=== PATIENT | male | born 2000 | race Two or more races ===

== ENCOUNTER 2021-10-20 21:01 | Inpatient (IN) | payer MEDICAID, OTHER ==
[~2021-10-20] VITALS: Ht 188 cm; Wt 133.7 kg
[2021-10-20 22:32] LABS: BASOPHILS % (AUTO) 0.9 % (0.0-2.0); EOSINOPHILS % (AUTO) 1.6 % (1.0-6.0); HEMATOCRIT 47.4 % (41-53); HEMOGLOBIN 15.8 g/dL (13.5-17.5); LYMPHOCYTES # (AUTO) 3.5 K/uL (1.0-4.8); LYMPHOCYTES % (AUTO) 32.9 % (22.0-44.0); MEAN CORPUSCULAR HEMOGLOBIN 28.1 pg (26.0-34.0); MEAN CORPUSCULAR HGB CONC 33.4 G/dL (31.0-37.0); MEAN CORPUSCULAR VOLUME 84 fL (80-100); MONOCYTES # (AUTO) 0.9 K/uL (0.1-1.0); MONOCYTES % (AUTO) 8.8 % (2.0-9.0); NEUTROPHILS % (AUTO) 55.8 % (40.0-70.0); PLATELET COUNT (AUTO) 219 K/uL (150-450); RED BLOOD CELL COUNT(AUTO) 5.64 MIL/uL (4.50-5.90); RED CELL DISTRIBUTION WIDTH 12.8 % (11.5-14.5)
[2021-10-20 22:42] LABS: ANION GAP 10 mmol/L (8-16); CALCIUM, TOTAL 9.3 mg/dL (8.8-10.5); CARBON DIOXIDE 28 mmol/L (22-29); CHLORIDE 100 mmol/L (98-107); CREATININE 0.93 mg/dL (0.60-1.30); GLUCOSE,RANDOM 144 mg/dL (70-110); POTASSIUM 3.9 mmol/L (3.5-5.1); SODIUM SERUM 138 mmol/L (136-145); UREA NITROGEN, BLOOD 18 mg/dL (7-18)
[2021-10-20 22:47] LABS: GLOMERULAR FILTR. RATE CALC > 60 mL/min (>60)
[2021-10-20 22:48] LABS: ALANINE AMINOTRANSFERASE 37 U/L (12-78); ALBUMIN 4.1 g/dL (3.4-5.0); ALKALINE PHOSPHATASE 86 U/L (46-116); ASPARTATE AMINOTRANSFERASE 26 U/L (15-37); BILIRUBIN,TOTAL 1.5 mg/dL (0.1-1.0); TOTAL PROTEIN, SERUM 7.9 g/dL (6.4-8.2)
[2021-10-20 23:15] LABS: COVID AG,FIA SOURCE NASOPHARYNGEAL
[2021-10-20 23:24] LABS: AMPHET/METH SCREEN,URINE POSITIVE (NEGATIVE); BARBITURATE SCREEN, URINE NEGATIVE (NEGATIVE); BENZODIAZEPINES SCREEN,URINE NEGATIVE (NEGATIVE); CANNABINOID SCREEN,URINE POSITIVE (NEGATIVE); COCAINE SCREEN,URINE NEGATIVE (NEGATIVE); METHADONE SCREEN, URINE NEGATIVE (NEGATIVE); OPIATE SCREEN,URINE NEGATIVE (NEGATIVE); PHENCYCLIDINE SCREEN,URINE NEGATIVE (NEGATIVE)
[2021-10-21] MEDS ORDERED: DiphenhydrAMINE HCL 50 MG/ML VIAL IM ONE (00:45)
[2021-10-21] MEDS ORDERED: HALOPERIDOL LACTATE 5 MG/ML VIAL IM ONE (00:45)
[2021-10-21] MEDS ORDERED: LORazepam 2 MG/ML VIAL IM ONE (00:45)
[2021-10-21 12:05] VITALS: BP 130/84
[2021-10-22] MEDS ORDERED: PETROLATUM,WHITE 28 GM JELLY TP PRN (06:30)
[2021-10-22] MEDS ORDERED: ALBUTEROL SULFATE HFA 90 MCG/PUFF 8 GM INHALER IH PRN (06:30)
[2021-10-22] MEDS ORDERED: NICOTINE 14 MG/24 HOUR PATCH TD PRN (06:30)
[2021-10-22] MEDS ORDERED: MAGNESIUM HYDROXIDE SUSPENSION 30 ML UDCUP PO PRN (06:30)
[2021-10-22] MEDS ORDERED: GuaiFENesin/D-METHORPHAN [SUGAR-FREE] 200-20MG/10 ML SYRUP UDCUP PO PRN (06:30)
[2021-10-22] MEDS ORDERED: DOCUSATE SODIUM 100 MG CAPSULE PO PRN (06:30)
[2021-10-22] MEDS ORDERED: CloNIDine HCL 0.1 MG TABLET PO PRN (06:30)
[2021-10-22] MEDS ORDERED: LOPERAMIDE HCL 2 MG CAPSULE PO PRN (06:30)
[2021-10-22] MEDS ORDERED: IBUPROFEN 400 MG TABLET PO PRN (06:30)
[2021-10-22] MEDS ORDERED: ONDANSETRON HCL 4 MG TABLET PO PRN (06:30)
[2021-10-22] MEDS ORDERED: ACETAMINOPHEN 325 MG TABLET PO PRN (06:30)
[2021-10-22 06:51] LABS: GLUCOMETER DEV NAME(LOC) 3E.C; GLUCOSE,POINT OF CARE 130 MG/DL (70-110)
[2021-10-22] MEDS: LORazepam 2 MG TABLET PO PRN (12:38)
[2021-10-22] MEDS: HALOPERIDOL 5 MG TABLET PO PRN (12:38)
[2021-10-22] MEDS: OLANZapine 5 MG TABLET PO SCH (17:20)
[2021-10-23 06:47] LABS: GLUCOMETER DEV NAME(LOC) 3E.C; GLUCOSE,POINT OF CARE 106 MG/DL (70-110)
[2021-10-23] MEDS: HALOPERIDOL 5 MG TABLET PO PRN (08:25)
[2021-10-23] MEDS: LORazepam 2 MG TABLET PO PRN (08:25)
[2021-10-23] MEDS: OLANZapine 5 MG TABLET PO SCH ×2 (08:25→18:01)
[2021-10-23 16:28] VITALS: BP 132/86
[2021-10-24 06:41] LABS: GLUCOMETER DEV NAME(LOC) 3E.C; GLUCOSE,POINT OF CARE 98 MG/DL (70-110)
[2021-10-24] MEDS: OLANZapine 5 MG TABLET PO SCH ×2 (08:08→17:00)
[2021-10-24 08:39] VITALS: BP 151/91
[2021-10-24] MEDS ORDERED: DiphenhydrAMINE HCL 50 MG/ML VIAL ONE (13:14)
[2021-10-24] MEDS ORDERED: LORazepam 2 MG/ML VIAL ONE (13:14)
[2021-10-24] MEDS ORDERED: HALOPERIDOL LACTATE 5 MG/ML VIAL ONE (13:14)
[2021-10-24] MEDS ORDERED: DiphenhydrAMINE HCL 50 MG/ML VIAL IM ONE (13:15)
[2021-10-24] MEDS ORDERED: HALOPERIDOL LACTATE 5 MG/ML VIAL IM ONE (13:15)
[2021-10-24] MEDS ORDERED: LORazepam 2 MG/ML VIAL IM ONE (13:15)
[2021-10-25 07:01] LABS: GLUCOMETER DEV NAME(LOC) 3E.C; GLUCOSE,POINT OF CARE 96 MG/DL (70-110)
[2021-10-25 08:27] VITALS: BP 153/99
[2021-10-25] MEDS: OLANZapine 5 MG TABLET PO SCH ×2 (09:42→15:56)
[2021-10-25] MEDS: LORazepam 2 MG TABLET PO PRN ×2 (09:45→15:56)
[2021-10-25] MEDS: HALOPERIDOL 5 MG TABLET PO PRN (09:45)
[2021-10-25 16:16] VITALS: BP 164/95
[2021-10-26 06:56] LABS: GLUCOMETER DEV NAME(LOC) 3E.C; GLUCOSE,POINT OF CARE 100 MG/DL (70-110)
[2021-10-26 08:01] LABS: COVID AG,FIA SOURCE NASAL SWAB
[2021-10-26] MEDS: OLANZapine 5 MG TABLET PO SCH ×2 (09:12→16:08)
[2021-10-26 16:11] VITALS: BP 133/78
[2021-10-26] MEDS: LORazepam 2 MG TABLET PO PRN (16:59)
[2021-10-26] MEDS: HALOPERIDOL 5 MG TABLET PO PRN (16:59)
[2021-10-27 06:56] LABS: GLUCOMETER DEV NAME(LOC) 3E.C; GLUCOSE,POINT OF CARE 100 MG/DL (70-110)
[2021-10-27 08:06] VITALS: BP 153/96
[2021-10-27] MEDS: OLANZapine 5 MG TABLET PO SCH ×2 (10:15→17:20)
[2021-10-27 16:07] VITALS: BP 155/99
[2021-10-27] MEDS: ZOLPIDEM TARTRATE 10 MG TABLET PO PRN (23:12)
[2021-10-28 06:50] LABS: GLUCOMETER DEV NAME(LOC) 3E.C; GLUCOSE,POINT OF CARE 152 MG/DL (70-110)
[2021-10-28] MEDS: OLANZapine 5 MG TABLET PO SCH ×2 (08:27→16:40)
[2021-10-28 09:04] VITALS: BP 159/83
[2021-10-28] MEDS: HALOPERIDOL 5 MG TABLET PO PRN (13:30)
[2021-10-28] MEDS: LORazepam 2 MG TABLET PO PRN (13:30)
[2021-10-28] MEDS ORDERED: DiphenhydrAMINE HCL 50 MG/ML VIAL IM ONE (14:00)
[2021-10-28] MEDS ORDERED: LORazepam 2 MG/ML VIAL IM ONE (14:00)
[2021-10-28] MEDS ORDERED: HALOPERIDOL LACTATE 5 MG/ML VIAL IM ONE (14:00)
[2021-10-29 06:42] LABS: GLUCOMETER DEV NAME(LOC) 3E.C; GLUCOSE,POINT OF CARE 178 MG/DL (70-110)
[2021-10-29] MEDS: HALOPERIDOL 5 MG TABLET PO PRN (09:48)
[2021-10-29] MEDS: OLANZapine 5 MG TABLET PO SCH ×2 (09:48→17:08)
[2021-10-29] MEDS: LORazepam 2 MG TABLET PO PRN ×2 (09:48→17:08)
[2021-10-29 16:14] VITALS: BP 143/87
[2021-10-29] MEDS: ZOLPIDEM TARTRATE 10 MG TABLET PO PRN (20:38)
[2021-10-30 06:51] LABS: GLUCOMETER DEV NAME(LOC) 3E.C; GLUCOSE,POINT OF CARE 179 MG/DL (70-110)
[2021-10-30] MEDS: OLANZapine 5 MG TABLET PO SCH (08:43)
[2021-10-30] MEDS: LORazepam 2 MG TABLET PO PRN ×2 (08:43→16:05)
[2021-10-30 16:04] VITALS: BP 144/89
[2021-10-30] MEDS: HALOPERIDOL 5 MG TABLET PO PRN (16:05)
[2021-10-30] MEDS: ZOLPIDEM TARTRATE 10 MG TABLET PO PRN (20:18)
[2021-10-30] MEDS: OLANZapine 10 MG TABLET PO SCH (20:18)
[2021-10-30 20:49] VITALS: BP 136/82
[2021-10-31 06:01] LABS: GLUCOMETER DEV NAME(LOC) 3E.C; GLUCOSE,POINT OF CARE 254 MG/DL (70-110)
[2021-10-31] MEDS: OLANZapine 10 MG TABLET PO SCH ×2 (08:39→20:06)
[2021-10-31] MEDS: HALOPERIDOL 5 MG TABLET PO PRN ×2 (08:39→16:43)
[2021-10-31] MEDS: LORazepam 2 MG TABLET PO PRN ×2 (13:00→17:00)
[2021-10-31 16:48] VITALS: BP 124/68
[2021-10-31] MEDS: ZOLPIDEM TARTRATE 10 MG TABLET PO PRN (20:07)
[2021-11-01 06:26] LABS: GLUCOMETER DEV NAME(LOC) 3E.C; GLUCOSE,POINT OF CARE 135 MG/DL (70-110)
[2021-11-01 08:42] VITALS: BP 130/73
[2021-11-01] MEDS: OLANZapine 10 MG TABLET PO SCH ×2 (10:00→20:03)
[2021-11-01] MEDS: LORazepam 2 MG TABLET PO PRN ×3 (10:00→19:09)
[2021-11-01] MEDS: HALOPERIDOL 5 MG TABLET PO PRN ×2 (14:52→19:08)
[2021-11-01 16:28] VITALS: BP 145/76
[2021-11-01] MEDS: ZOLPIDEM TARTRATE 10 MG TABLET PO PRN (20:03)
[2021-11-02 06:42] LABS: GLUCOMETER DEV NAME(LOC) 3E.C; GLUCOSE,POINT OF CARE 153 MG/DL (70-110)
[2021-11-02 07:11] LABS: COVID AG,FIA SOURCE NASAL SWAB
[2021-11-02] MEDS: OLANZapine 10 MG TABLET PO SCH ×2 (09:01→20:27)
[2021-11-02] MEDS: LORazepam 2 MG TABLET PO PRN ×3 (09:01→20:27)
[2021-11-02 09:38] VITALS: BP 141/59
[2021-11-02] MEDS: HALOPERIDOL 5 MG TABLET PO PRN ×2 (15:18→20:27)
[2021-11-02 16:25] VITALS: BP 139/85
[2021-11-03 05:57] LABS: GLUCOMETER DEV NAME(LOC) 3E.C; GLUCOSE,POINT OF CARE 172 MG/DL (70-110)
[2021-11-03 08:00] VITALS: BP 140/88
[2021-11-03] MEDS: LORazepam 2 MG TABLET PO PRN ×2 (08:13→16:15)
[2021-11-03] MEDS: OLANZapine 10 MG TABLET PO SCH ×2 (08:13→20:18)
[2021-11-03 16:05] VITALS: BP 164/93
[2021-11-03] MEDS: HALOPERIDOL 5 MG TABLET PO PRN (16:16)
[2021-11-03] MEDS ORDERED: DiphenhydrAMINE HCL 50 MG/ML VIAL ONE (16:36)
[2021-11-03] MEDS ORDERED: LORazepam 2 MG/ML VIAL ONE (16:36)
[2021-11-03] MEDS ORDERED: HALOPERIDOL LACTATE 5 MG/ML VIAL IM ONE (16:45)
[2021-11-03] MEDS ORDERED: DiphenhydrAMINE HCL 50 MG/ML VIAL IM ONE (16:45)
[2021-11-03] MEDS ORDERED: LORazepam 2 MG/ML VIAL IM ONE (16:45)
[2021-11-03] MEDS: ZOLPIDEM TARTRATE 10 MG TABLET PO PRN (20:18)
[2021-11-04 06:36] LABS: GLUCOMETER DEV NAME(LOC) 3E.C; GLUCOSE,POINT OF CARE 211 MG/DL (70-110)
[2021-11-04 08:05] VITALS: BP 135/84
[2021-11-04] MEDS: LORazepam 2 MG TABLET PO PRN ×2 (08:13→14:34)
[2021-11-04] MEDS: OLANZapine 10 MG TABLET PO SCH (08:14)
[2021-11-04] MEDS ORDERED: DEXTROSE 50%-WATER 25 GM/50 ML SYRINGE IVP PRN (11:30)
[2021-11-04 11:31] LABS: GLUCOMETER DEV NAME(LOC) 3E.C; GLUCOSE,POINT OF CARE 221 MG/DL (70-110)
[2021-11-04] MEDS: INSULIN LISPRO 100 UNITS/ML SQ PRN ×3 (11:32→21:17)
[2021-11-04] MEDS: HALOPERIDOL 5 MG TABLET PO PRN (14:34)
[2021-11-04 16:07] VITALS: BP 146/85
[2021-11-04 16:36] LABS: GLUCOMETER DEV NAME(LOC) 3E.C; GLUCOSE,POINT OF CARE 198 MG/DL (70-110)
[2021-11-04] MEDS: MAG HYDROX/AL HYDROX/SIMETH ES 30 ML SUSPENSION UDCUP PO PRN (16:41)
[2021-11-04 17:24] LABS: COVID AG,FIA SOURCE NASAL SWAB
[2021-11-04] MEDS: OLANZapine 7.5 MG TABLET PO SCH (20:10)
[2021-11-04 21:21] LABS: GLUCOMETER DEV NAME(LOC) 3E.C; GLUCOSE,POINT OF CARE 166 MG/DL (70-110)
[2021-11-05] MEDS: INSULIN LISPRO 100 UNITS/ML SQ PRN ×3 (06:46→17:45)
[2021-11-05 06:51] LABS: GLUCOMETER DEV NAME(LOC) 3E.C; GLUCOSE,POINT OF CARE 185 MG/DL (70-110)
[2021-11-05 08:08] VITALS: BP 150/62
[2021-11-05] MEDS: HALOPERIDOL 5 MG TABLET PO PRN ×2 (08:49→17:38)
[2021-11-05] MEDS: OLANZapine 7.5 MG TABLET PO SCH ×2 (08:52→20:41)
[2021-11-05] MEDS: LORazepam 2 MG TABLET PO PRN ×2 (08:52→17:38)
[2021-11-05 12:11] LABS: GLUCOMETER DEV NAME(LOC) 3E.C; GLUCOSE,POINT OF CARE 207 MG/DL (70-110)
[2021-11-05] MEDS: MAG HYDROX/AL HYDROX/SIMETH ES 30 ML SUSPENSION UDCUP PO PRN (16:05)
[2021-11-05 16:11] VITALS: BP 124/88
[2021-11-05 17:51] LABS: GLUCOMETER DEV NAME(LOC) 3E.C; GLUCOSE,POINT OF CARE 172 MG/DL (70-110)
[2021-11-06 06:41] LABS: GLUCOMETER DEV NAME(LOC) 3E.C; GLUCOSE,POINT OF CARE 183 MG/DL (70-110)
[2021-11-06] MEDS: INSULIN LISPRO 100 UNITS/ML SQ PRN ×2 (06:58→11:30)
[2021-11-06 08:19] VITALS: BP 129/65
[2021-11-06] MEDS ORDERED: OLAN7.5T22 PO (08:40)
[2021-11-06] MEDS: LORazepam 2 MG TABLET PO PRN (08:59)
[2021-11-06] MEDS: HALOPERIDOL 5 MG TABLET PO PRN (08:59)
[2021-11-06] MEDS: OLANZapine 7.5 MG TABLET PO SCH (08:59)
[2021-11-06 11:36] LABS: GLUCOMETER DEV NAME(LOC) 3E.C; GLUCOSE,POINT OF CARE 189 MG/DL (70-110)
== END 2021-11-06 13:30 | disposition home or self-care (01) | DRG 750 ==
LOC: EMS 21:01 → 3EC 10-21 09:28
PROVIDERS: ADMIT Psychiatry & Neurology Psychiatry; ATTEND Psychiatry & Neurology Psychiatry
DX: F20.0 Paranoid schizophrenia (principal); R45.851 Suicidal ideations; G47.00 Insomnia, unspecified; E11.65 Type 2 diabetes mellitus with hyperglycemia; F12.10 Cannabis abuse, uncomplicated; F15.10 Other stimulant abuse, uncomplicated; F17.200 Nicotine dependence, unspecified, uncomplicated; F41.9 Anxiety disorder, unspecified; Z20.822 Contact with and (suspected) exposure to COVID-19; Z79.899 Other long term (current) drug therapy
CPT/HCPCS: 80053; 82962; 83036; 85025; 99285; G0480; J1200; J1630; J2060

== ENCOUNTER 2022-02-02 13:57 | Inpatient (IN) | payer MEDICAID ==
[~2022-02-02] VITALS: Ht 188 cm; Wt 144.5 kg
[~2022-02-02 13:57] MED LIST: OLAN7.5T22 PO
[2022-02-02 15:32] LABS: COVID AG,FIA SOURCE NASOPHARYNGEAL
[2022-02-02 15:33] LABS: BASOPHILS % (AUTO) 0.4 % (0.0-2.0); EOSINOPHILS % (AUTO) 2.6 % (1.0-6.0); HEMATOCRIT 48.2 % (41-53); HEMOGLOBIN 16.1 g/dL (13.5-17.5); LYMPHOCYTES # (AUTO) 3.1 K/uL (1.0-4.8); LYMPHOCYTES % (AUTO) 31.3 % (22.0-44.0); MEAN CORPUSCULAR HEMOGLOBIN 28.4 pg (26.0-34.0); MEAN CORPUSCULAR HGB CONC 33.4 G/dL (31.0-37.0); MEAN CORPUSCULAR VOLUME 85 fL (80-100); MONOCYTES # (AUTO) 0.7 K/uL (0.1-1.0); MONOCYTES % (AUTO) 6.8 % (2.0-9.0); NEUTROPHILS # (AUTO) 5.8 K/uL (1.8-7.7); NEUTROPHILS % (AUTO) 58.9 % (40.0-70.0); PLATELET COUNT (AUTO) 248 K/uL (150-450); RED BLOOD CELL COUNT(AUTO) 5.65 MIL/uL (4.50-5.90); RED CELL DISTRIBUTION WIDTH 13.4 % (11.5-14.5)
[2022-02-02 15:37] LABS: ANION GAP 6 mmol/L (8-16); CALCIUM, TOTAL 9.6 mg/dL (8.8-10.5); CARBON DIOXIDE 30 mmol/L (22-29); CHLORIDE 101 mmol/L (98-107); CREATININE 0.93 mg/dL (0.60-1.30); GLOMERULAR FILTR. RATE CALC > 60 mL/min (>60); GLUCOSE,RANDOM 237 mg/dL (70-110); POTASSIUM 4.5 mmol/L (3.5-5.1); SODIUM SERUM 137 mmol/L (136-145); UREA NITROGEN, BLOOD 12 mg/dL (7-18)
[2022-02-02 15:42] LABS: ALANINE AMINOTRANSFERASE 60 U/L (12-78); ALBUMIN 3.9 g/dL (3.4-5.0); ALKALINE PHOSPHATASE 122 U/L (46-116); AMPHET/METH SCREEN,URINE POSITIVE (NEGATIVE); ASPARTATE AMINOTRANSFERASE 23 U/L (15-37); BARBITURATE SCREEN, URINE NEGATIVE (NEGATIVE); BENZODIAZEPINES SCREEN,URINE NEGATIVE (NEGATIVE); BILIRUBIN,TOTAL 0.8 mg/dL (0.1-1.0); CANNABINOID SCREEN,URINE POSITIVE (NEGATIVE); COCAINE SCREEN,URINE NEGATIVE (NEGATIVE); METHADONE SCREEN, URINE NEGATIVE (NEGATIVE); OPIATE SCREEN,URINE NEGATIVE (NEGATIVE); PHENCYCLIDINE SCREEN,URINE NEGATIVE (NEGATIVE)
[2022-02-02] MEDS ORDERED: OLANZapine 5 MG RAPDIS TABLET PO PRN (17:45)
[2022-02-02] MEDS ORDERED: LORazepam 2 MG TABLET PO PRN (17:45)
[2022-02-03 01:42] VITALS: BP 125/80
[2022-02-03 02:01] LABS: GLUCOMETER DEV NAME(LOC) ERT.5; GLUCOSE,POINT OF CARE 134 MG/DL (70-110)
[2022-02-03] MEDS ORDERED: INFLUENZA VIRUS VACCINE QVS 2022-23 (6MO+)/PF 60 MCG/0.5 ML SYRINGE IM. ONE (02:45)
[2022-02-03 08:17] VITALS: BP 139/79
[2022-02-03] MEDS ORDERED: BENZOCAINE/MENTHOL LOZENGE PO PRN (09:30)
[2022-02-03] MEDS ORDERED: PETROLATUM,WHITE 28 GM JELLY TP PRN (09:30)
[2022-02-03] MEDS ORDERED: BACITRACIN 28 GM OINTMENT TP PRN (09:30)
[2022-02-03] MEDS ORDERED: ALBUTEROL SULFATE HFA 90 MCG/PUFF 8 GM INHALER IH PRN (09:30)
[2022-02-03] MEDS ORDERED: MAG HYDROX/AL HYDROX/SIMETH ES 30 ML SUSPENSION UDCUP PO PRN (09:30)
[2022-02-03] MEDS ORDERED: IBUPROFEN 600 MG TABLET PO PRN (09:30)
[2022-02-03] MEDS ORDERED: DOCUSATE SODIUM 100 MG CAPSULE PO PRN (09:30)
[2022-02-03] MEDS ORDERED: MAGNESIUM HYDROXIDE SUSPENSION 30 ML UDCUP PO PRN (09:30)
[2022-02-03] MEDS ORDERED: ACETAMINOPHEN 325 MG TABLET PO PRN (09:30)
[2022-02-03] MEDS ORDERED: ONDANSETRON HCL 4 MG TABLET PO PRN (09:30)
[2022-02-03] MEDS ORDERED: DEXTROSE 50%-WATER 25 GM/50 ML SYRINGE IVP PRN (09:30)
[2022-02-03] MEDS ORDERED: CloNIDine HCL 0.1 MG TABLET PO PRN (09:30)
[2022-02-03] MEDS ORDERED: LOPERAMIDE HCL 2 MG CAPSULE PO PRN (09:30)
[2022-02-03] MEDS ORDERED: OMEPRAZOLE 20 MG CAPSULE PO PRN (09:30)
[2022-02-03] MEDS: INSULIN LISPRO 100 UNITS/ML SQ PRN ×3 (11:41→20:10)
[2022-02-03 11:46] LABS: GLUCOMETER DEV NAME(LOC) 3E.C; GLUCOSE,POINT OF CARE 269 MG/DL (70-110)
[2022-02-03 16:48] VITALS: BP 139/78
[2022-02-03 17:37] LABS: GLUCOMETER DEV NAME(LOC) 3E.C; GLUCOSE,POINT OF CARE 224 MG/DL (70-110)
[2022-02-03] MEDS: ZOLPIDEM TARTRATE 10 MG TABLET PO PRN (20:07)
[2022-02-03 20:21] LABS: GLUCOMETER DEV NAME(LOC) 3E.C; GLUCOSE,POINT OF CARE 239 MG/DL (70-110)
[2022-02-04 06:31] LABS: GLUCOMETER DEV NAME(LOC) 3E.C; GLUCOSE,POINT OF CARE 177 MG/DL (70-110)
[2022-02-04] MEDS: INSULIN LISPRO 100 UNITS/ML SQ PRN ×4 (06:44→21:11)
[2022-02-04 07:28] LABS: CHOL/HDL RATIO 3.3 (4.2-7.3); FREE T4 (FREE THYROXINE) 0.84 ng/dL (0.76-1.46); THYROID STIMULATING HORMONE 1.43 uIU/mL (0.36-3.74)
[2022-02-04 09:36] VITALS: BP 152/97
[2022-02-04 11:51] LABS: GLUCOMETER DEV NAME(LOC) 3E.C; GLUCOSE,POINT OF CARE 255 MG/DL (70-110)
[2022-02-04 16:36] LABS: GLUCOMETER DEV NAME(LOC) 3E.C; GLUCOSE,POINT OF CARE 218 MG/DL (70-110)
[2022-02-04 16:42] VITALS: BP 142/94
[2022-02-04 20:41] LABS: GLUCOMETER DEV NAME(LOC) 3E.C; GLUCOSE,POINT OF CARE 278 MG/DL (70-110)
[2022-02-04] MEDS: ZOLPIDEM TARTRATE 10 MG TABLET PO PRN (21:06)
[2022-02-05 06:41] LABS: GLUCOMETER DEV NAME(LOC) 3E.C; GLUCOSE,POINT OF CARE 172 MG/DL (70-110)
[2022-02-05] MEDS: INSULIN LISPRO 100 UNITS/ML SQ PRN ×3 (07:04→17:28)
[2022-02-05] MEDS ORDERED: DIVALPROEX SODIUM 500 MG DR TABLET PO SCH (17:00)
[2022-02-05] MEDS ORDERED: LITHIUM CARBONATE 300 MG CAPSULE PO SCH (17:00)
[2022-02-05] MEDS ORDERED: RisperiDONE 3 MG TABLET PO SCH (17:00)
[2022-02-05 17:16] LABS: GLUCOMETER DEV NAME(LOC) 3E.C; GLUCOSE,POINT OF CARE 318 MG/DL (70-110)
[2022-02-05 17:16] LABS: GLUCOMETER DEV NAME(LOC) 3E.C; GLUCOSE,POINT OF CARE 301 MG/DL (70-110)
[2022-02-05 17:49] VITALS: BP 150/78
[2022-02-05] MEDS ORDERED: RISP3TAB63 PO (17:58)
[2022-02-05] MEDS ORDERED: LITH300C3 PO (17:58)
[2022-02-05] MEDS ORDERED: DIVA-112 PO (17:58)
== END 2022-02-05 18:40 | disposition home or self-care (01) | DRG 750 ==
LOC: EMS 14:13 → 3EC 02-03 03:14
PROVIDERS: ADMIT Psychiatry & Neurology Psychiatry; ATTEND Psychiatry & Neurology Psychiatry
DX: F20.0 Paranoid schizophrenia (principal); E11.65 Type 2 diabetes mellitus with hyperglycemia; F32.A Depression, unspecified; G47.00 Insomnia, unspecified; I10 Essential (primary) hypertension; K21.9 Gastro-esophageal reflux disease without esophagitis; F12.90 Cannabis use, unspecified, uncomplicated; F15.10 Other stimulant abuse, uncomplicated; Z20.822 Contact with and (suspected) exposure to COVID-19; Z87.891 Personal history of nicotine dependence; Z79.899 Other long term (current) drug therapy
CPT/HCPCS: 80053; 80061; 82962; 84439; 84443; 85025; 99285; G0480

== ENCOUNTER 2025-01-31 21:47 | Inpatient (IN) | payer MEDICAID ==
[~2025-01-31] VITALS: Ht 188 cm; Wt 120.4 kg
[~2025-01-31 21:47] MED LIST changes: +DIVA-112 PO; +LITH300C3 PO; -OLAN7.5T22 PO; +RISP3TAB77 PO
[2025-01-31 23:10] LABS: COVID AG,FIA SOURCE NASAL SWAB
[2025-01-31 23:15] LABS: SARS-COV2 (COVID) ANTIGEN,FIA Negative (Negative)
[2025-01-31] MEDS ORDERED: SODIUM CHLORIDE 0.9% 1,000 ML IV ONE (23:15)
[2025-01-31 23:40] LABS: PLATELET COUNT (AUTO) 217 K/uL (150-450); RED BLOOD CELL COUNT(AUTO) 5.17 MIL/uL (4.50-5.90); RED CELL DISTRIBUTION WIDTH 12.6 % (11.5-14.5); WHITE BLOOD COUNT (AUTO) 10.0 K/uL (4.5-11.0)
[2025-01-31 23:48] LABS: CALCIUM, TOTAL 9.1 mg/dL (8.8-10.5); CREATININE 0.87 mg/dL (0.60-1.30); GLOMERULAR FILTR. RATE CALC > 60 mL/min (>60); GLUCOSE,RANDOM 289 mg/dL (70-110); SODIUM SERUM 134 mmol/L (136-145); UREA NITROGEN, BLOOD 17 mg/dL (7-18)
[2025-02-01] MEDS: BACITRACIN 0.9 GM PACKET OINTMENT TP ONE (00:18)
[2025-02-01] MEDS ORDERED: ZOLPIDEM TARTRATE 10 MG TABLET PO PRN (01:30)
[2025-02-01 04:25] VITALS: BP 146/99; PULSE 72; RESP 18; TEMP 97.5; O2SAT 99
[2025-02-01] MEDS ORDERED: BENZOCAINE/MENTHOL [CEPACOL] LOZENGE PO PRN (08:15)
[2025-02-01] MEDS ORDERED: LOPERAMIDE HCL 2 MG CAPSULE PO PRN (08:15)
[2025-02-01] MEDS ORDERED: ALBUTEROL SULFATE HFA 90 MCG/PUFF 8 GM INHALER IH PRN (08:15)
[2025-02-01] MEDS ORDERED: PETROLATUM,WHITE 28 GM JELLY TP PRN (08:15)
[2025-02-01] MEDS ORDERED: DEXTROSE 50%-WATER 25 GM/50 ML SYRINGE IVP PRN (08:15)
[2025-02-01] MEDS ORDERED: ONDANSETRON 4 MG TABLET PO PRN (08:15)
[2025-02-01] MEDS ORDERED: BACITRACIN 28 GM OINTMENT TP PRN (08:15)
[2025-02-01] MEDS ORDERED: NICOTINE POLACRILEX 4 MG LOZENGE PO PRN (08:15)
[2025-02-01] MEDS ORDERED: MAG HYDROX/ALUMINUM HYD/SIMETH ES 30 ML SUSPENSION UDCUP PO PRN (08:15)
[2025-02-01] MEDS ORDERED: DOCUSATE SODIUM 100 MG CAPSULE PO PRN (08:15)
[2025-02-01] MEDS ORDERED: MAGNESIUM HYDROXIDE SUSPENSION 30 ML UDCUP PO PRN (08:15)
[2025-02-01] MEDS ORDERED: OMEPRAZOLE 20 MG CAPSULE PO PRN (08:15)
[2025-02-01] MEDS ORDERED: IBUPROFEN 600 MG TABLET PO PRN (08:15)
[2025-02-01] MEDS ORDERED: ACETAMINOPHEN 325 MG TABLET PO PRN (08:15)
[2025-02-01 08:30] VITALS: BP 141/69; PULSE 64; RESP 18; TEMP 97.5; O2SAT 98
[2025-02-01] MEDS: INSULIN LISPRO 100 UNITS/ML SQ PRN (13:48)
[2025-02-01 14:06] LABS: GLUCOMETER DEV NAME(LOC) 3EX.2; GLUCOSE,POINT OF CARE 286 MG/DL (70-110)
[2025-02-01 17:40] LABS: GLUCOMETER DEV NAME(LOC) 3EX.2; GLUCOSE,POINT OF CARE 164 MG/DL (70-110)
[2025-02-01] MEDS: DIVALPROEX SODIUM 500 MG DR TABLET PO SCH (20:50)
[2025-02-01] MEDS: LITHIUM CARBONATE 300 MG CAPSULE PO SCH (20:50)
[2025-02-01 20:57] VITALS: BP 138/85; PULSE 69; RESP 18; TEMP 98; O2SAT 99
[2025-02-01 21:00] VITALS: BP 138/85; PULSE 69; RESP 18; TEMP 98; O2SAT 99
[2025-02-01 23:26] LABS: GLUCOMETER DEV NAME(LOC) 3EX.2; GLUCOSE,POINT OF CARE 241 MG/DL (70-110)
[2025-02-02 06:35] LABS: GLUCOMETER DEV NAME(LOC) 3EX.2; GLUCOSE,POINT OF CARE 239 MG/DL (70-110)
[2025-02-02 07:33] LABS: PLATELET COUNT (AUTO) 202 K/uL (150-450); RED BLOOD CELL COUNT(AUTO) 5.43 MIL/uL (4.50-5.90); RED CELL DISTRIBUTION WIDTH 12.5 % (11.5-14.5); WHITE BLOOD COUNT (AUTO) 7.7 K/uL (4.5-11.0)
[2025-02-02 08:06] VITALS: BP 123/70; PULSE 62; RESP 17; TEMP 97.8; O2SAT 99
[2025-02-02 08:09] LABS: ASPARTATE AMINOTRANSFERASE 13 U/L (15-37); CALCIUM, TOTAL 8.9 mg/dL (8.8-10.5); CHOL/HDL RATIO 3.5 (4.2-7.3); CREATININE 0.75 mg/dL (0.60-1.30); GLOMERULAR FILTR. RATE CALC > 60 mL/min (>60); GLUCOSE,RANDOM 245 mg/dL (70-110); LDL CHOL (CALC.) 97 mg/dL (0-130); PHOSPHORUS 3.3 mg/dL (2.5-4.9); SODIUM SERUM 137 mmol/L (136-145); TOTAL PROTEIN, SERUM 7.1 g/dL (6.4-8.2); UREA NITROGEN, BLOOD 13 mg/dL (7-18)
[2025-02-02 12:05] LABS: GLUCOMETER DEV NAME(LOC) 3EX.2; GLUCOSE,POINT OF CARE 244 MG/DL (70-110)
[2025-02-02] MEDS: SULFAMETHOX/TRIMETH DS 800-160 MG/TABLET PO SCH (12:15)
[2025-02-02 17:31] LABS: GLUCOMETER DEV NAME(LOC) 3EX.2; GLUCOSE,POINT OF CARE 201 MG/DL (70-110)
[2025-02-02 20:30] LABS: GLUCOMETER DEV NAME(LOC) 3EX.2; GLUCOSE,POINT OF CARE 247 MG/DL (70-110)
[2025-02-02 20:36] VITALS: BP 112/98; PULSE 80; RESP 18; TEMP 98.2; O2SAT 96
[2025-02-03 05:50] LABS: GLUCOMETER DEV NAME(LOC) 3EX.2; GLUCOSE,POINT OF CARE 200 MG/DL (70-110)
[2025-02-03 09:47] VITALS: BP 118/74; PULSE 65; RESP 18; TEMP 97.6; O2SAT 96
[2025-02-03 11:55] LABS: GLUCOMETER DEV NAME(LOC) 3EX.2; GLUCOSE,POINT OF CARE 238 MG/DL (70-110)
[2025-02-03 17:41] LABS: GLUCOMETER DEV NAME(LOC) 3EX.2; GLUCOSE,POINT OF CARE 242 MG/DL (70-110)
[2025-02-03 20:05] VITALS: BP 111/74; PULSE 63; RESP 16; TEMP 97.8; O2SAT 98
[2025-02-03 22:21] LABS: GLUCOMETER DEV NAME(LOC) 3EX.2; GLUCOSE,POINT OF CARE 271 MG/DL (70-110)
[2025-02-04 07:11] LABS: GLUCOMETER DEV NAME(LOC) 3EX.2; GLUCOSE,POINT OF CARE 142 MG/DL (70-110)
[2025-02-04 09:54] VITALS: BP 122/78; PULSE 68; RESP 18; TEMP 98; O2SAT 98
[2025-02-04 11:50] LABS: GLUCOMETER DEV NAME(LOC) 3EX.2; GLUCOSE,POINT OF CARE 177 MG/DL (70-110)
[2025-02-04 16:40] LABS: GLUCOMETER DEV NAME(LOC) 3EX.2; GLUCOSE,POINT OF CARE 196 MG/DL (70-110)
[2025-02-04] MEDS: INSULIN GLARGINE,HUM.REC.ANLOG 100 UNITS/ML SQ SCH (20:01)
[2025-02-04 21:06] VITALS: BP 125/88; PULSE 88; RESP 18; TEMP 98; O2SAT 99
[2025-02-04 21:31] LABS: GLUCOMETER DEV NAME(LOC) 3EX.2; GLUCOSE,POINT OF CARE 299 MG/DL (70-110)
[2025-02-05 06:45] LABS: GLUCOMETER DEV NAME(LOC) 3EX.2; GLUCOSE,POINT OF CARE 193 MG/DL (70-110)
[2025-02-05 11:50] LABS: GLUCOMETER DEV NAME(LOC) 3EX.2; GLUCOSE,POINT OF CARE 201 MG/DL (70-110)
[2025-02-05 12:23] VITALS: BP 124/64; PULSE 93; RESP 18; TEMP 97.2; O2SAT 98
[2025-02-05] MEDS ORDERED: LITH300C3 PO (13:28)
[2025-02-05] MEDS ORDERED: DIVA-112 PO (13:28)
[2025-02-05] MEDS ORDERED: RISP-31 PO (13:28)
== END 2025-02-05 16:00 | disposition home or self-care (01) | DRG 750 ==
LOC: EMS 22:09 → 3EI 02-01 02:45
PROVIDERS: ADMIT Psychiatry & Neurology Psychiatry; ATTEND Psychiatry & Neurology Psychiatry
PROC: GZHZZZZ Group Psychotherapy (ICD-10-PCS; principal; 2025-02-01)
DX: F20.0 Paranoid schizophrenia (principal); R45.851 Suicidal ideations; E11.65 Type 2 diabetes mellitus with hyperglycemia; E66.9 Obesity, unspecified; F32.A Depression, unspecified; I10 Essential (primary) hypertension; F15.10 Other stimulant abuse, uncomplicated; Z20.822 Contact with and (suspected) exposure to COVID-19; M79.671 Pain in right foot; K21.9 Gastro-esophageal reflux disease without esophagitis; G47.00 Insomnia, unspecified; Z68.34 Body mass index [BMI] 34.0-34.9, adult; Z72.0 Tobacco use; Z79.899 Other long term (current) drug therapy
CPT/HCPCS: 80048; 80053; 80061; 82009; 82962; 83036; 83735; 84100; 84443; 85025; 99285; G0480; J1815